=== PATIENT | male | born 1995 | race Caucasian/White ===

== ENCOUNTER 2024-11-26 05:33 | Emergency (ER) | payer OTHER, SELFPAY ==
--- NOTE | 2024-11-26 05:39 | ED_ITS ---
HPI - Headache General Chief Complaint: Headache Stated Complaint: headache, head pressure Time Seen by Provider: 11/26/24 05:38 Source: patient and RN notes reviewed Mode of arrival: Ambulatory Limitations: no limitations History of Present Illness HPI Narrative: 29-year-old male no reported medical issues who presents with complaint of headache or pressure for the past 5 days. Patient states it is around his e ntire head. He describes it more as a pressure than painful. States it has been pretty persistent. He tried Tylenol last night without any improvement. Denies any fevers or chills no cold cough or congestion symptoms. No sudden vision changes. He was noted he has had little decrease in vision over the years had NM K at age 18 does wear glasses now for far vision. Patient denies any chest pain, no shortness of breath. Denies any nausea or vomiting. Denies any abdominal pain. No other GI or urinary symptoms. Denies any numbness, tingling or weakness, no difficulty with gait or movement. It was felt slightly dizzy. Denies any ear pain. Patient states he traveled here from [place] for work. 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 He did the emergency department and had a cardiac workup 5 days ago with EKG and lab work which he states was negative. Patient states NM occasionally prior surgery. No daily prescription medications. No known drug allergies. No tobacco, no regular alcohol, no recreational drugs. Related Data Allergies Allergy/AdvReac Type Severity Reaction Status Date / Time No Known Drug Allergies Allergy Verified 11/26/24 05:44 Review of Systems Review of Systems ROS Unobtainable: All systems reviewed & are unremarkable except as noted in HPI and below Patient History Social History Smoking Status: Never smoker Exam Narrative Exam Narrative: GEN: well nourished, well appearing male, alert and oriented x 3, patient appears to be in mild distress. HEENT: Atraumatic, pupils are equal round reactive to light, extraocular movements are intact, nares are clear, TMs are clear with no fluid, there is no conjunctival pallor. Throat is clear without any exudates, erythema, tonsillar enlargement or uvular deviation, no facial droop. HEART: Regular rate and rhythm without murmur, clicks, rubs. No carotid bruits, pulses are equal in upper and lower extremities LUNGS:Lungs clear to auscultation, no wheezes, rales, crackles, chest moves symmetrically ABD:bowel sounds normal, soft, non-tender, no guarding, rebound, rigidity, no masses noted, no hepatosplenomegaly MSCL: Non-tender, no muscle atrophy, muscles strength 5/5 upper and lower extremities, full range of motion, normal gait NEURO:CN 2-12 intact, sensation normal, reflexes 2/4 upper and lower extremities. finger nose finger test normal, heel jean-baptiste test normal. SKIN: No rash, erythema or other skin changes Initial Vital Signs Initial Vital Signs: Vital Signs Temperature 97.0 F L 11/26/24 05:41 Pulse Rate 84 11/26/24 05:41 Respiratory Rate 17 11/26/24 05:41 Blood Pressure 172/95 H 11/26/24 05:41 Pulse Oximetry 98 11/26/24 05:41 Oxygen Delivery Method Room Air 11/26/24 05:41 Course Orders Ordered: ED Orders 11/26/24 05:49 CT head/brain wo con Stat Covid-19 + FLU A/B + RSV - PCR Stat Vital Signs Vital signs: Vital Signs - 8 hr 11/26/24 05:41 11/26/24 06:33 Temperature 97.0 F L Pulse Rate 84 75 Respiratory Rate 17 Blood Pressure 172/95 H 130/71 Pulse Oximetry 98 Oxygen Delivery Method Room Air MDM - Headache Lab Data Labs: Lab Results 11/26/24 Range/Units 05:52 SARS-CoV-2 (PCR) Negative (Negative) Influenza A (RT-PCR) Flu a negative (NEGATIVE) Influenza B (RT-PCR) Flu b negative (NEGATIVE) RSV (PCR) Negative (Negative) [facility] Narrative Medical decision making narrative: 29 year old male with complaint of head pressure x 5 days. Patient describes some mild dizziness. Denies any other symptoms. He was hypertensive initially here in the department but improved during stay in the department. Patient has a normal neurologic exam. Discussed with patient obtain head CT he has had symptoms for 5 days. COVID/influenza/RSV is negative. Head CT is negative. visualized paranasal sinuses and mastoid air cells are normal. Discussed obtaining labs that patient had labs in the last 4 days for cardiac workup which would include a CBC, CMP and troponin which he states were normal. After discussion we will defer repeating. Patient was imaging is normal. Patient is felt appropriate for discharge home with plan for follow up. Discharge Plan Departure Patient Disposition: Home Clinical Impression: Headache Instructions: DI for Headache Activity Restrictions/Additional Instructions: Follow up for recheck if symptoms are persisting. You can take acetaminophen and/or ibuprofen as needed. Please return for fevers, severe headaches, sudden vision changes, new numbness tingling or weakness, persistent vomiting, new chest pain or shortness of breath, difficulty with speech or movement or other new or concerning changes. Stand Alone Forms: Patient Portal/API/Survey
[2024-11-26 05:41] VITALS: BP 172/95; PULSE 84; RESP 17; TEMP 36.1; O2SAT 98; BMI 29.5
--- NOTE | 2024-11-26 05:49 | DI.CT.S_ITS ---
PROCEDURE: CT HEAD/BRAIN WO CON INDICATIONS: head pressure, elevated bp x 5 days. TECHNIQUE: Noncontrast 4.5 mm thick angled axial sections acquired from the foramen magnum to the vertex, with coronal and sagittal reformats. For radiation dose reduction, the following was used: automated exposure control, adjustment of mA and/or kV according to patient size. COMPARISON: None. FINDINGS: Image quality: Diagnostic. CSF spaces: Basal cisterns are patent. No extra-axial fluid collections. Ventricles are normal in size and shape. Brain: No midline shift. No intracranial masses or hemorrhage. Browning-white matter interface is normal. Skull and face: Calvarium and visualized facial bones are intact, without suspicious lesions. Sinuses: Visualized sinuses and mastoids are clear. IMPRESSION: No evidence acute intracranial process. Comment: Final report is concordant with preliminary interpretation provided by [facility]. Dictated by: Erwin Goodman M.D. on 11/26/2024 at 7:50 Approved by: Erwin Goodman M.D. on 11/26/2024 at 7:50
[2024-11-26 06:32] LABS: Influenza A - CEPHEID Flu A NEGATIVE (NEGATIVE); Influenza B - CEPHEID Flu B NEGATIVE (NEGATIVE); Respiratory Syncytial Virus Negative (Negative)
[2024-11-26 06:33] VITALS: BP 130/71; PULSE 75
[2024-11-26 06:43] LABS: COVID-19 CEPHEID 4-PLEX PCR Negative (Negative)
== END 2024-11-26 06:53 | disposition home or self-care (01) ==
PROVIDERS: Emergency Provider Emergency Medicine
DX: R51.9 Headache, unspecified (principal); R42 Dizziness and giddiness; H53.8 Other visual disturbances
CPT/HCPCS: 0241U; 70450; 99282; 99284